=== PATIENT | female | born 1965 | race Caucasian/White ===

== ENCOUNTER 2018-03-01 10:22 | Emergency (ER) | payer MEDICAID, OTHER, SELFPAY ==
[2018-03-01] MEDS ORDERED: Sodium Chloride 0.9% 1,000 ML IV ONE (10:44)
[2018-03-01] MEDS ORDERED: Sodium Chloride 0.9% 1,000 ML ONE (11:02)
--- NOTE | 2018-03-01 11:09 | C.PDOC ---
History Of Present Illness <Chelly Henderson - Last Filed: 03/01/18 15:36> <Christin Galeano - Last Filed: 03/01/18 16:09> 52 year old female, with PMHx of GERD, gallstones, presents to ED for evaluation of gradual onset of epigastric and RUQ abdominal pain associated with nausea over the last 4 days. Otherwise, denies fever, chills, sore throat, drooling, CP, SOB, dyspnea, diaphoresis, vomiting, diarrhea, changes in bowel habits, dysuria, hematuria, frequency, back pain. Ambulate to Ed for evaluation , not in nay apparent distress. (Chelly Henderson) History Per: Patient History/Exam Limitations: no limitations Onset/Duration Of Symptoms: Days (4) Current Symptoms Are (Timing): Still Present Location Of Pain/Discomfort: RUQ, Epigastric Radiation Of Pain To:: None Quality Of Discomfort: "Pain" Associated Symptoms: Nausea. denies: Vomiting, Diarrhea, Loss Of Appetite, Back Pain, Chest Pain, Constipation, Urinary Symptoms Exacerbating Factors: None Alleviating Factors: None Recent travel outside of the [place]: No Additional History Per: Patient Abnormal Vaginal Bleeding: No <Chelly Henderson - Last Filed: 03/01/18 15:36> <Christin Galeano - Last Filed: 03/01/18 16:09> Time Seen by Provider: 03/01/18 10:26 Chief Complaint (Nursing): Abdominal Pain Past Medical History Reviewed: Historical Data, Nursing Documentation, Vital Signs Family History: States: Unknown Family Hx - Social History Hx Alcohol Use: No Hx Substance Use: No <Chelly Henderson - Last Filed: 03/01/18 15:36> Vital Signs: Last Vital Signs Temp 98.4 F 03/01/18 13:38 Pulse 79 03/01/18 13:38 Resp 16 03/01/18 13:38 BP 159/85 H 03/01/18 13:38 Pulse Ox 100 03/01/18 15:36 Review Of Systems Except As Marked, All Systems Reviewed And Found Negative. Constitutional: Negative for: Fever, Chills Cardiovascular: Negative for: Chest Pain, Palpitations Respiratory: Negative for: Cough, Shortness of Breath Gastrointestinal: Positive for: Nausea, Abdominal Pain. Negative for: Vomiting , Diarrhea, Constipation Genitourinary: Negative for: Dysuria, Frequency, Incontinence, Hematuria, Vaginal Discharge Musculoskeletal: Negative for: Back Pain <AmarjitChelly magallanes - Last Filed: 03/01/18 15:36> Physical Exam - Physical Exam Appears: Well, Non-toxic, No Acute Distress Skin: Normal Color, Warm, Dry, No Rash Head: Normacephalic Eye(s): bilateral: PERRL Nose: No Flaring, No Discharge Oral Mucosa: Moist, No Drooling Tongue: Normal Appearing Lips: Normal Appearing Neck: Trachea Midline, Supple Cardiovascular: Rhythm Regular, No Murmur, No JVD Respiratory: No Accessory Muscle Use, No Rales, No Rhonchi, No Wheezing Gastrointestinal/Abdominal: Soft, Tenderness (RUQ, mod), No Distention, No Guarding, No Rebound Back: No CVA Tenderness Extremity: Normal ROM, No Pedal Edema, No Deformity, No Swelling Neurological/Psych: Oriented x3, Normal Speech, Normal Motor, Normal Sensation, Normal Reflexes <AmarjitFaina magallanesa - Last Filed: 03/01/18 15:36> ED Course And Treatment - Laboratory Results Result Diagrams: 03/01/18 11:01 03/01/18 11:01 Lab Interpretation: No Acute Changes ECG: Interpreted By Me, Viewed By Me ECG Rhythm: Sinus Tachycardia ECG Interpretation: No Acute Changes Interpretation Of ECG: Normal axis. No acute ST/T wave changes. Rate From EC (bpm) O2 Sat by Pulse Oximetry: 100 (RA) Pulse Ox Interpretation: Normal - CT Scan/US CT abd/pelvis Other Rad Studies (CT/US): Radiology Report Reviewed CT/US Interpretation: Creator : Pete Elena MD. Dictator : Pete Elena MD. Imaging Technologist : Instrument Lens Grinder : Pete Elena MD. Approver2 : Report Date : 03/01/2018 12:56:55. My Comment : . PROCEDURE: CT Abdomen and Pelvis with contrast. HISTORY: LLQ pain. COMPARISON: None. TECHNIQUE: Following the intravenous administration of iodinated contrast material, a CT examination of the abdomen and pelvis performed from the domes of the diaphragms to the symphysis pubis with reformatted datasets provided not only axial but also sagittal and coronal planes. Oral contrast was not administered as per referring physician request. Contrast dose: Visipaque 320, 100 cc. Radiation dose: Total exam DLP = 305.43 mGy-cm. This CT exam was performed using one or more of the following dose reduction techniques: Automated exposure control, adjustment of the mA and/or kV according to patient size, and/ or use of iterative reconstruction technique. FINDINGS: LOWER THORAX: Linear atelectasis or fibrosis in the right base. LIVER: Diminished attenuation is seen throughout the liver indicating diffuse fatty infiltration. No mass or intrahepatic bile dilatation is identified. GALLBLADDER AND BILE DUCTS: Gallbladder distention is appreciated with cholelithiasis in the lumen, possible mural thickening and pericholecystic fluid collection suspicious for cholecystitis. Clinically correlate. Common bile duct caliber appears normal. No radiodense choledocholithiasis appreciable. PANCREAS: Unremarkable. No gross lesion or ductal dilatation. SPLEEN: Unremarkable. ADRENALS: Unremarkable. No mass. KIDNEYS AND URETERS: No obstructive uropathy bilaterally. Probable small chronic infarct right kidney upper pole appear tiny lucency is too small to characterize at the midpole left kidney anteriorly. VASCULATURE: Unremarkable. No aortic aneurysm. BOWEL: Unremarkable. No obstruction. No gross mural thickening. APPENDIX: Normal appendix. PERITONEUM: Unremarkable. No free fluid. No free air. LYMPH NODES: Unremarkable. No enlarged lymph nodes. BLADDER: Unremarkable. REPRODUCTIVE : Trace fluid seen the cul-de-sac which is nonspecific, of uncertain origin. BONES: No acute fracture. OTHER FINDINGS: None. IMPRESSION: Findings suspicious for active cholecystitis without dilatation of the intra or extrahepatic biliary ducts or radiodense choledocholithiasis demonstrated. Cholelithiasis identified within the gallbladder lumen. Further clinical correlation advised. Ultrasound follow-up may be helpful. Hepatic steatosis. No suspicious findings in the left lower quadrant/ left hemipelvis. Is possible left lower quadrant tenderness was a result of left adnexal cyst rupture though no left adnexal cysts is appreciated at this time. This could account for the minimal cul-de-sac fluid encountered. Progress Note: Blood work, urinalysis, Abd & Pelvis CT, EKG ordered and reviewed. Pt was given Zofran, Pepcid, Toradol, Protonix, and IV fluids. On re- evaluation, pt is afebrile, hemodynamicaly stable. Non-toxic. Tolerate Po well in Ed. ENT: no acute findings. Lungs: CTA B/L, BS equal B/L. CVS: (+)S1S2, reg. Abd: benign, (-) guarding, (-) rebound. back: (-) CVA tenderness. Neurologicaly intact. Blood work review, mild elevation LFT. troponin- negative. EKG_ no acute abnoramlities. UA (-). CT abd/plevis (+) cholecystitis w/o duct dilation or other emergent findings. results review and discussed with pt and family. Pt has clinical findings c/w cholecystitis. Pt advised on course of ds. rfef. to f/u with PMD, Surgery in 2-3 days for re- eval. return if any worsening or new changes. <Chelly Henderson - Last Filed: 03/01/18 15:36> - Laboratory Results Result Diagrams: 03/01/18 11:01 03/01/18 11:01 Progress Note: I am concerned about the CT scan findings. I instructed SADIE Henderson to contact this patient and ask her to come back to the ER for further evaluation if she is still symptomatic. <Christin Galeano - Last Filed: 03/01/18 16:09> Disposition Counseled Patient/Family Regarding: Studies Performed, Diagnosis, Need For Followup, Rx Given - Disposition Disposition Time: 13:02 <Chelly Henderson - Last Filed: 03/01/18 15:36> <Christin Galeano - Last Filed: 03/01/18 16:09> - Disposition Referrals: Trudy Correa MD [Staff Provider] - Disposition: HOME/ ROUTINE Condition: STABLE Additional Instructions: Encourage fluids Avoid fatty, greasy, fried, spicy food Follow up with PMD in2 -3 days for re-evaluation. Return to ED if any worsening or new changes. 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 - Scribe Statement The provider has reviewed the documentation as recorded by the Scribe <Chelly Henderson - Last Filed: 03/01/18 15:36> <Christin Galeano - Last Filed: 03/01/18 16:09> - Scribe Statement Leon Chavez All medical record entries made by the Scribe were at my direction and personally dictated by me. I have reviewed the chart and agree that the record accurately reflects my personal performance of the history, physical exam, medical decision making, and the department course for this patient. I have also personally directed, reviewed, and agree with the discharge instructions and disposition. (Chelly Henderson)
[2018-03-01 11:10] LABS: BASO % 0.6 % (0.0-2.0); EOS # 0.1 K/uL (0.0-0.7); EOS % 1.6 % (0.0-4.0); HEMOGLOBIN 12.8 g/dL (11.0-16.0); LYMPH # 1.4 K/uL (1.0-4.3); LYMPH % 20.4 % (20.0-40.0); MEAN CORPUSCULAR HEMOGLOBIN 32.1 pg (27.0-31.0); MEAN CORPUSCULAR HGB CONC 34.3 g/dL (33.0-37.0); MEAN PLATELET VOLUME 8.2 fL (7.2-11.7); MONO # 0.5 K/uL (0.0-0.8); MONO % 7.6 % (0.0-10.0); NEUT # 4.9 K/uL (1.8-7.0); NEUT % 69.8 % (50.0-75.0); RBC 3.99 Mil/uL (3.80-5.20); RED CELL DISTRIBUTION WIDTH 12.8 % (11.5-14.5)
[2018-03-01 11:21] LABS: MEAN CELL VOLUME 93.7 fL (81.0-99.0); WHITE BLOOD COUNT 7.1 K/uL (4.8-10.8)
[2018-03-01 11:25] LABS: ALBUMIN 4.6 g/dL (3.5-5.0); ALT/SGPT 62 U/L (9-52); AST/SGOT 31 U/L (14-36); BLOOD UREA NITROGEN 10 mg/dL (7-17); CALCIUM 10.6 mg/dl (8.6-10.4); GFR AFRICAN-AMERICAN > 60; GFR NON-AFRICAN AMERICAN > 60; LIPASE 33 U/L (23-300)
[2018-03-01] MEDS ORDERED: Iodixanol 320 MG/ML 200 ML BOTTLE IV ONE (11:57)
[2018-03-01 11:58] LABS: URINE BILIRUBIN NEGATIVE (NEGATIVE); URINE CLARITY Clear (Clear); URINE COLOR Straw (YELLOW); URINE GLUCOSE (UA) NORMAL (Normal); URINE LEUKOCYTE ESTERASE NEG Leu/uL (Negative); URINE PROTEIN NEGATIVE (NEGATIVE); URINE UROBILINOGEN NORMAL mg/dL (0.2-1.0)
[2018-03-01 12:03] LABS: URINE BLOOD NEGATIVE (NEGATIVE)
[2018-03-01] MEDS ORDERED: Piperacillin/Tazobact 3.375 gm 100 ML IV STA (12:30)
--- NOTE | 2018-03-01 12:58 | CT ---
PROCEDURE: CT Abdomen and Pelvis with contrast HISTORY: LLQ pain COMPARISON: None. TECHNIQUE: Following the intravenous administration of iodinated contrast material, a CT examination of the abdomen and pelvis performed from the domes of the diaphragms to the symphysis pubis with reformatted datasets provided not only axial but also sagittal and coronal planes. Oral contrast was not administered as per referring physician request. Contrast dose: Visipaque 320, 100 cc Radiation dose: Total exam DLP = 305.43 mGy-cm. This CT exam was performed using one or more of the following dose reduction techniques: Automated exposure control, adjustment of the mA and/or kV according to patient size, and/or use of iterative reconstruction technique. FINDINGS: LOWER THORAX: Linear atelectasis or fibrosis in the right base. LIVER: Diminished attenuation is seen throughout the liver indicating diffuse fatty infiltration. No mass or intrahepatic bile dilatation is identified. GALLBLADDER AND BILE DUCTS: Gallbladder distention is appreciated with cholelithiasis in the lumen, possible mural thickening and pericholecystic fluid collection suspicious for cholecystitis. Clinically correlate. Common bile duct caliber appears normal. No radiodense choledocholithiasis appreciable. PANCREAS: Unremarkable. No gross lesion or ductal dilatation. SPLEEN: Unremarkable. ADRENALS: Unremarkable. No mass. KIDNEYS AND URETERS: No obstructive uropathy bilaterally. Probable small chronic infarct right kidney upper pole appear tiny lucency is too small to characterize at the midpole left kidney anteriorly. VASCULATURE: Unremarkable. No aortic aneurysm. BOWEL: Unremarkable. No obstruction. No gross mural thickening. APPENDIX: Normal appendix. PERITONEUM: Unremarkable. No free fluid. No free air. LYMPH NODES: Unremarkable. No enlarged lymph nodes. BLADDER: Unremarkable. REPRODUCTIVE: Trace fluid seen the cul-de-sac which is nonspecific, of uncertain origin. BONES: No acute fracture. OTHER FINDINGS: None. IMPRESSION: Findings suspicious for active cholecystitis without dilatation of the intra or extrahepatic biliary ducts or radiodense choledocholithiasis demonstrated. Cholelithiasis identified within the gallbladder lumen. Further clinical correlation advised. Ultrasound follow-up may be helpful. Hepatic steatosis. No suspicious findings in the left lower quadrant/ left hemipelvis. Is possible left lower quadrant tenderness was a result of left adnexal cyst rupture though no left adnexal cysts is appreciated at this time. This could account for the minimal cul-de-sac fluid encountered.
[2018-03-01] MEDS ORDERED: Piperacillin/Tazobact 3.375 gm 100 ML IVPB ONE (13:30)
[2018-03-01 13:38] VITALS: BP 159/85; PULSE 79; RESP 16; TEMP 98.4
[2018-03-01 15:36] VITALS: O2SAT 100
--- NOTE | 2018-03-02 12:40 | CARD ---
APPROVED REPORT EKG Measurement Heart [id number] <Conclusion> Sinus tachycardia Possible Left atrial enlargement Nonspecific T wave abnormality Abnormal ECG
== END 2018-03-01 14:13 | disposition home or self-care (01) ==
LOC: C.ER 10:22
DX: K81.9 Cholecystitis, unspecified (principal)
CPT/HCPCS: 74177; 80053; 81001; 83690; 84484; 85025; 93005; 96374; 96375; 99284; C9113; J1885; J2543; J7030; Q9966; Q9967